=== PATIENT | female | born 1970 | race American Indian/Alaskan Native ===

== ENCOUNTER 2019-01-04 20:24 | Emergency (ER) | payer OTHER ==
--- NOTE | 2019-01-04 20:54 | Event Note ---
ED Screening Note Date of service: 01/04/19 Time: 20:51 ED Screening Note: itchy ears and throat pain. Now having right swelling of neck. This initial assessment/diagnostic orders/clinical plan/treatment(s) is/are subject to change based on patients health status, clinical progression and re- assessment by fellow clinical providers in the ED. Further treatment and workup at subsequent clinical providers discretion. Patient/guardian urged not to elope from the ED as their condition may be serious if not clinically assessed and managed. Initial orders include:
[2019-01-05] MEDS ORDERED: NORCO 5/325 PO STA (01:40)
[2019-01-05] MEDS ORDERED: DECADRON PO ONE (01:40)
--- NOTE | 2019-01-05 01:55 | Emergency Department Report ---
ED General Adult HPI - General Chief complaint: Earache Stated complaint: EAR PAIN SWOLLEN NECK Time Seen by Provider: 01/05/19 00:59 Source: patient Mode of arrival: Ambulatory Limitations: No Limitations - History of Present Illness Initial comments: 48-year-old -Armenian female emergency department a few day history of a tingling/50 sensation to the right cheek and then while eating something today. She had a sudden onset of swelling. States every time she begins to eat that the swelling worsens and then slowly but never fully resolved and today. Reports no fever, chills, sweats, hemoptysis, hematemesis,. No ear drainage or discharge. No odynophagia or dysphagia -: Sudden (swelling, swelling) Radiation: non-radiation Quality: aching Consistency: constant Improves with: none Worsens with: none Associated Symptoms: denies: chest pain, cough, fever/chills, loss of appetite, malaise, nausea/vomiting, rash, syncope, weakness Treatments Prior to Arrival: none - Related Data Previous Rx's Medication Instructions Recorded Last Taken Type Albuterol Sulfate [Ventolin HFA] 2 puff IH Q4H PRN #1 hfa.aer.ad 11/09/14 Unknown Rx Acetaminophen/Codeine [Tylenol #3] 1 tab PO Q6H PRN #15 tab 07/29/15 Unknown Rx Ibuprofen [Motrin 800 MG tab] 800 mg PO Q8HR PRN #30 tablet 07/29/15 Unknown Rx Sulfamethoxazole/Trimethoprim 1 each PO BID #14 tablet 07/29/15 Unknown Rx [Bactrim DS TAB] Amoxicillin/Potassium Clav 1 each PO TID #21 tablet 01/05/19 Unknown Rx [Augmentin 500-125 Tablet] Ketorolac [Toradol] 10 mg PO Q8H PRN #10 tablet 01/05/19 Unknown Rx Allergies Allergy/AdvReac Type Severity Reaction Status Date / Time Sulfa (Sulfonamide Allergy Unknown Verified 01/04/19 20:53 Antibiotics) ED Review of Systems ROS: Stated complaint: EAR PAIN SWOLLEN NECK Other details as noted in HPI Comment: All other systems reviewed and negative ED Past Medical Hx - Past Medical History Hx Asthma: Yes Additional medical history: bronchitis - Surgical History Additional Surgical History: removal of scar tissue, lap - Social History Smoking Status: Current Every Day Smoker Substance Use Type: None - Medications Home Medications: Home Medications Medication Instructions Recorded Confirmed Last Taken Type Albuterol Sulfate [Ventolin HFA] 2 puff IH Q4H PRN #1 hfa.aer.ad 11/09/14 07/28/15 Unknown Rx Acetaminophen/Codeine [Tylenol #3] 1 tab PO Q6H PRN #15 tab 07/29/15 Unknown Rx Ibuprofen [Motrin 800 MG tab] 800 mg PO Q8HR PRN #30 tablet 07/29/15 Unknown Rx Sulfamethoxazole/Trimethoprim 1 each PO BID #14 tablet 07/29/15 Unknown Rx [Bactrim DS TAB] Amoxicillin/Potassium Clav 1 each PO TID #21 tablet 01/05/19 Unknown Rx [Augmentin 500-125 Tablet] Ketorolac [Toradol] 10 mg PO Q8H PRN #10 tablet 01/05/19 Unknown Rx ED Physical Exam - General Limitations: No Limitations General appearance: alert, in no apparent distress - Head Head exam: Present: atraumatic, normocephalic - Eye Eye exam: Present: normal appearance, PERRL, EOMI Pupils: Present: normal accommodation - ENT ENT exam: Present: normal exam, mucous membranes moist - Neck Neck exam: Present: normal inspection - Respiratory Respiratory exam: Present: normal lung sounds bilaterally. Absent: respiratory distress - Cardiovascular Cardiovascular Exam: Present: regular rate, normal rhythm. Absent: systolic murmur, diastolic murmur, rubs, gallop - GI/Abdominal GI/Abdominal exam: Present: soft, normal bowel sounds - Extremities Exam Extremities exam: Present: normal inspection - Back Exam Back exam: Present: normal inspection - Neurological Exam Neurological exam: Present: alert, oriented X3 - Psychiatric Psychiatric exam: Present: normal affect, normal mood - Skin Skin exam: Present: warm, dry, intact, normal color. Absent: rash ED Course Vital Signs 01/04/19 20:50 Temperature 98.2 F Pulse Rate 82 Respiratory 18 Rate Blood Pressure 121/70 O2 Sat by Pulse 100 Oximetry ED Medical Decision Making - Medical Decision Making 48-year-old Armenian female was right-sided facial swelling salivary region. Swelling increases with certain meals causes a pressure tightness type of pain. No pustular discharge or bleeding noted. No odynophagia or dysphagia. No voice change. No lymphadenopathy.. Salivary stone, but also could be an inflamed salivary gland/early infectious salivary gland. Region was tender around biotics, and inflammatory/Decadron was provided while in the emergency department Critical care attestation.: If time is entered above; I have spent that time in minutes in the direct care of this critically ill patient, excluding procedure time. ED Disposition Clinical Impression: Facial pain Disposition: DC-01 TO HOME OR SELFCARE Is pt being admited?: No Does the pt Need Aspirin: No Condition: Stable Instructions: Sialoadenitis (ED), Parotid Duct Obstruction (ED) Additional Instructions: Discharge margin department suture swelling worsen, you develop fever, unable to manage the pain, are you having any issues eating/, drinking Prescriptions: Amoxicillin/Potassium Clav [Augmentin 500-125 Tablet] 1 each PO TID #21 tablet Ketorolac [Toradol] 10 mg PO Q8H PRN #10 tablet PRN Reason: Pain Referrals: SHANE CISNEROS MD [Primary Care Provider] - 3-5 Days
[2019-01-05] MEDS ORDERED: IBUPROFEN PO ONE (02:17)
[2019-01-05 02:58] VITALS: BP 117/46
== END 2019-01-05 02:58 | disposition home or self-care (01) ==
LOC: ED 20:24
DX: R51 Headache (principal); R22.0 Localized swelling, mass and lump, head; J45.909 Unspecified asthma, uncomplicated; F17.200 Nicotine dependence, unspecified, uncomplicated; Z88.2 Allergy status to sulfonamides; Z88.5 Allergy status to narcotic agent
CPT/HCPCS: 99282; J1100

== ENCOUNTER 2019-05-03 22:58 | Emergency (ER) | payer SELFPAY ==
--- NOTE | 2019-05-04 00:58 | XRay Report ---
CHEST 1 VIEW INDICATION / CLINICAL INFORMATION: Chest Pain. COMPARISON: None available. FINDINGS: SUPPORT DEVICES: None. HEART / MEDIASTINUM: No significant abnormality. LUNGS / PLEURA: No significant pulmonary or pleural abnormality. No pneumothorax. ADDITIONAL FINDINGS: No significant additional findings. IMPRESSION: 1. No acute findings. Signer Name: Filiberto Thompson MD Signed: 05/04/2019 12:53 AM Workstation Name: [email or web address]
[2019-05-04 01:13] LABS: Mean Corpuscular HGB Conc 28 % (30-34); Platelet Count 224 K/mm3 (140-440); Red Blood Count 2.58 M/mm3 (3.65-5.03)
[2019-05-04 01:18] LABS: Hemoglobin 4.4 gm/dl (10.1-14.3)
[2019-05-04 01:19] LABS: Hematocrit 15.8 % (30.3-42.9); Mean Corpuscular Volume 61 fl (79-97); Red Cell Distribution Width 20.5 % (13.2-15.2)
[2019-05-04 01:31] LABS: BUN/Creatinine Ratio 21; Blood Urea Nitrogen 15 mg/dL (7-17); Calcium 8.8 mg/dL (8.4-10.2); Hemolysis Index 0
[2019-05-04] MEDS ORDERED: NACL 0.9% 500 ML 500 ML IV ONE (02:12)
[2019-05-04 02:25] LABS: Basophils % (Manual) 0 % (0.0-1.8); Hypochromasia 3+; Total Cells Counted 100
[2019-05-04 02:26] LABS: Anisocytosis 2+; Large Platelets 1+; Ovalocytes 1+; Platelet Estimate Consistent w Auto; Tear Drop Cells Few
--- NOTE | 2019-05-04 02:46 | Emergency Department Report ---
ED Shortness of Breath HPI - General Chief Complaint: Dyspnea/Respdistress Stated Complaint: SHORTNESS OF BREATH LIGHTHEADED Time Seen by Provider: 05/04/19 01:27 Source: patient Mode of arrival: Ambulatory Limitations: No Limitations - History of Present Illness Initial Comments: Mrs. López is a 48-year-old female with history of iron deficiency anemia, asthma and bronchitis who presents with shortness of breath, palpitations ice- eating For several months she had generalized weakness. She feels faint with movement. +hx of heavy vaginal bleeding. Has not taken iron tablets in over one year. No longer followed by her previous PCP. No dark or bloody stools. Denies chest pain. Denies leg pain.. MD Complaint: shortness of breath -: Gradual, month(s) (several) Severity: moderate Consistency: constant Improves With: rest Worsens With: exertion, movement Known History Of: asthma, other (iron deficiency anemia) Associated Symptoms: denies other symptoms - Related Data Previous Rx's Medication Instructions Recorded Last Taken Type Albuterol Sulfate [Ventolin HFA] 2 puff IH Q4H PRN #1 hfa.aer.ad 11/09/14 Unknown Rx Acetaminophen/Codeine [Tylenol #3] 1 tab PO Q6H PRN #15 tab 07/29/15 Unknown Rx Ibuprofen [Motrin 800 MG tab] 800 mg PO Q8HR PRN #30 tablet 07/29/15 Unknown Rx Sulfamethoxazole/Trimethoprim 1 each PO BID #14 tablet 07/29/15 Unknown Rx [Bactrim DS TAB] Amoxicillin/Potassium Clav 1 each PO TID #21 tablet 01/05/19 Unknown Rx [Augmentin 500-125 Tablet] Ketorolac [Toradol] 10 mg PO Q8H PRN #10 tablet 01/05/19 Unknown Rx Ferrous Sulfate [Ferrous Sulfate 324 mg PO TID 30 Days #90 tablet. 05/04/19 Unknown Rx 324 MG] Allergies Allergy/AdvReac Type Severity Reaction Status Date / Time Sulfa (Sulfonamide Allergy Unknown Verified 01/05/19 02:18 Antibiotics) hydrocodone AdvReac Unknown Verified 01/05/19 02:18 ED Review of Systems ROS: Stated complaint: SHORTNESS OF BREATH LIGHTHEADED Other details as noted in HPI Comment: All other systems reviewed and negative Constitutional: malaise Respiratory: shortness of breath Cardiovascular: dyspnea on exertion, other (feels faint) Endocrine: other (craving ice) ED Past Medical Hx - Past Medical History Previous Medical History?: Yes Hx Asthma: Yes Additional medical history: bronchitis, Heart Murmur - Surgical History Past Surgical History?: Yes Additional Surgical History: removal of scar tissue, lap - Social History Smoking Status: Current Every Day Smoker - Medications Home Medications: Home Medications Medication Instructions Recorded Confirmed Last Taken Type Albuterol Sulfate [Ventolin HFA] 2 puff IH Q4H PRN #1 hfa.aer.ad 11/09/14 07/28/15 Unknown Rx Acetaminophen/Codeine [Tylenol #3] 1 tab PO Q6H PRN #15 tab 07/29/15 Unknown Rx Ibuprofen [Motrin 800 MG tab] 800 mg PO Q8HR PRN #30 tablet 07/29/15 Unknown Rx Sulfamethoxazole/Trimethoprim 1 each PO BID #14 tablet 07/29/15 Unknown Rx [Bactrim DS TAB] Amoxicillin/Potassium Clav 1 each PO TID #21 tablet 01/05/19 Unknown Rx [Augmentin 500-125 Tablet] Ketorolac [Toradol] 10 mg PO Q8H PRN #10 tablet 01/05/19 Unknown Rx Ferrous Sulfate [Ferrous Sulfate 324 mg PO TID 30 Days #90 tablet.dr 05/04/19 Unknown Rx 324 MG] ED Physical Exam - General Limitations: No Limitations General appearance: alert, in no apparent distress - Head Head exam: Present: atraumatic, normocephalic - Eye Eye exam: Present: normal appearance - ENT ENT exam: Present: mucous membranes moist - Neck Neck exam: Present: normal inspection, full ROM - Respiratory Respiratory exam: Present: normal lung sounds bilaterally. Absent: respiratory distress, wheezes, rales, rhonchi - Cardiovascular Cardiovascular Exam: Present: regular rate, normal rhythm, normal heart sounds. Absent: systolic murmur, diastolic murmur, rubs, gallop - GI/Abdominal GI/Abdominal exam: Present: soft, normal bowel sounds. Absent: distended, tenderness, guarding, rebound - Extremities Exam Extremities exam: Present: normal inspection - Back Exam Back exam: Present: normal inspection - Neurological Exam Neurological exam: Present: alert, oriented X3 - Psychiatric Psychiatric exam: Present: normal affect, normal mood - Skin Skin exam: Present: warm, dry, intact, normal color. Absent: rash ED Course Vital Signs 05/04/19 01:36 Temperature 98.2 F Pulse Rate 75 Respiratory 19 Rate Blood Pressure 115/67 [Left] O2 Sat by Pulse 98 Oximetry ED Medical Decision Making - Lab Data Result diagrams: 05/04/19 00:53 05/04/19 00:53 - Medical Decision Making Mrs. Dick presents with severe symptomatic anemia. Hemoglobin 4. She is not actively mistreating at this time. I do not suspect GI bleed. She will receive 2 units transfusion in the emergency department. Will be discharged after transfusion is completed. I have prescribed iron supplementation. Referred to outside clinic. Critical care attestation.: If time is entered above; I have spent that time in minutes in the direct care of this critically ill patient, excluding procedure time. ED Disposition Clinical Impression: Symptomatic anemia, Iron deficiency anemia Disposition: DC-01 TO HOME OR SELFCARE Is pt being admited?: No Does the pt Need Aspirin: No Condition: Stable Instructions: Iron Deficiency Anemia (ED), Iron Rich Diet (ED) Prescriptions: Ferrous Sulfate [Ferrous Sulfate 324 MG] 324 mg PO TID 30 Days #90 tablet. Referrals: [facility] [Outside] - 3-5 Days Forms: Work/School Release Form(ED)
[2019-05-04] MEDS ORDERED: NACL 0.9% 500 ML 500 ML ONE (04:40)
[2019-05-04 10:05] VITALS: BP 135/74
== END 2019-05-04 10:13 | disposition home or self-care (01) ==
LOC: ED 22:58
DX: D50.9 Iron deficiency anemia, unspecified (principal); J45.909 Unspecified asthma, uncomplicated; F17.200 Nicotine dependence, unspecified, uncomplicated; Z79.899 Other long term (current) drug therapy; Z88.2 Allergy status to sulfonamides; Z88.5 Allergy status to narcotic agent
CPT/HCPCS: 36415; 36430; 71045; 80048; 84484; 85007; 85025; 86850; 86900; 86901; 86920; 93005; 93010; 99284; J7040; P9016

== ENCOUNTER 2019-05-27 07:36 | Emergency (ER) | payer SELFPAY ==
--- NOTE | 2019-05-27 08:27 | Emergency Department Report ---
- General Chief complaint: Weakness Stated complaint: CUAUHTEMOC Time Seen by Provider: 05/27/19 07:54 Source: EMS, old records reviewed Mode of arrival: Ambulatory Limitations: No Limitations - History of Present Illness Initial comments: 48 year old female the past medical history of iron deficiency anemia requiring blood transfusions, asthma, and GERD presents to the hospital complaining of weakness and fluttering in her chest 2 days. Also has ongoing epigastric discomfort which is difficult to characterize. This pain worsens with ingestion of certain foods. Patient takes bnsl-[id number] Zantac. She recently completed her menstrual cycle reports that it wasn't significantly heavy. Patient is not compliant with enly-rry-hpdvgmw iron tablets GI side effects. Patient was seen here May 04 for similar symptoms and had a hemoglobin of 4. She received 2 days of blood and was discharged from the ER. Patient states she is starting to have cravings for ice again. No black stools reported. PMD: None - Related Data Previous Rx's Medication Instructions Recorded Last Taken Type Albuterol Sulfate [Ventolin HFA] 2 puff IH Q4H PRN #1 hfa.aer.ad 11/09/14 Unknown Rx Acetaminophen/Codeine [Tylenol #3] 1 tab PO Q6H PRN #15 tab 07/29/15 Unknown Rx Ibuprofen [Motrin 800 MG tab] 800 mg PO Q8HR PRN #30 tablet 07/29/15 Unknown Rx Sulfamethoxazole/Trimethoprim 1 each PO BID #14 tablet 07/29/15 Unknown Rx [Bactrim DS TAB] Amoxicillin/Potassium Clav 1 each PO TID #21 tablet 01/05/19 Unknown Rx [Augmentin 500-125 Tablet] Ketorolac [Toradol] 10 mg PO Q8H PRN #10 tablet 01/05/19 Unknown Rx Ferrous Sulfate [Ferrous Sulfate 300 mg PO DAILY 30 Days ml 05/27/19 Unknown Rx Oral Liq 300 Mg/5 Ml] Mag Hydrox/Aluminum Hyd/Simeth 20 ml PO BID PRN #1 oral.susp 05/27/19 Unknown Rx [Maalox Advanced Suspension] Pantoprazole [Protonix TAB] 20 mg PO QDAY #20 tablet. 05/27/19 Unknown Rx Allergies Allergy/AdvReac Type Severity Reaction Status Date / Time Sulfa (Sulfonamide Allergy Unknown Verified 01/05/19 02:18 Antibiotics) hydrocodone AdvReac Unknown Verified 01/05/19 02:18 ED Review of Systems ROS: Stated complaint: CUAUHTEMOC Other details as noted in HPI Comment: All other systems reviewed and negative ED Past Medical Hx - Past Medical History Previous Medical History?: Yes Hx Asthma: Yes Additional medical history: bronchitis, Heart Murmur, Anemia - Surgical History Past Surgical History?: Yes Additional Surgical History: removal of scar tissue, lap - Social History Smoking Status: Current Every Day Smoker Substance Use Type: Alcohol - Medications Home Medications: Home Medications Medication Instructions Recorded Confirmed Last Taken Type Albuterol Sulfate [Ventolin HFA] 2 puff IH Q4H PRN #1 hfa.aer.ad 11/09/14 07/28/15 Unknown Rx Acetaminophen/Codeine [Tylenol #3] 1 tab PO Q6H PRN #15 tab 07/29/15 Unknown Rx Ibuprofen [Motrin 800 MG tab] 800 mg PO Q8HR PRN #30 tablet 07/29/15 Unknown Rx Sulfamethoxazole/Trimethoprim 1 each PO BID #14 tablet 07/29/15 Unknown Rx [Bactrim DS TAB] Amoxicillin/Potassium Clav 1 each PO TID #21 tablet 01/05/19 Unknown Rx [Augmentin 500-125 Tablet] Ketorolac [Toradol] 10 mg PO Q8H PRN #10 tablet 01/05/19 Unknown Rx Ferrous Sulfate [Ferrous Sulfate 300 mg PO DAILY 30 Days ml 05/27/19 Unknown Rx Oral Liq 300 Mg/5 Ml] Mag Hydrox/Aluminum Hyd/Simeth 20 ml PO BID PRN #1 oral.susp 05/27/19 Unknown Rx [Maalox Advanced Suspension] Pantoprazole [Protonix TAB] 20 mg PO QDAY #20 tablet. 05/27/19 Unknown Rx ED Physical Exam - General Limitations: No Limitations - Other Other exam information: General: No acute distress Head: Atraumatic Eyes: normal appearance ENT: Moist mucous membranes Neck: Normal appearance, no midline tenderness Chest: Clear to auscultation bilaterally CV: Regular rate and rhythm Abdomen: Soft, normal bowel sounds, epigastric tenderness, nondistended, no rebound or guarding Back: Normal inspection Extremity: Normal inspection infection, full range of motion Neuro: Alert O x 3, no facial asymmetry, speech clear, no gross motor sensory deficit Psych: Appropriate behavior Skin: No rash ED Course Vital Signs 05/27/19 05/27/19 05/27/19 07:51 08:29 10:29 Temperature 98.0 F Pulse Rate 77 73 Respiratory 14 14 18 Rate Blood Pressure 136/73 Blood Pressure 136/83 [Left] O2 Sat by Pulse 100 100 Oximetry - Consultations Consultation #1: 05/27/19 10:56 case d/w Pakeitha with heydi heart. f/u recommended ED Medical Decision Making - Lab Data Result diagrams: 05/27/19 08:03 05/27/19 08:03 Lab Results 05/27/19 05/27/19 05/27/19 Range/Units 08:03 08:03 08:03 WBC 5.0 (4.5-11.0) K/mm3 RBC 3.73 (3.65-5.03) M/mm3 Hgb 8.2 L (10.1-14.3) gm/dl Hct 27.2 L (30.3-42.9) % MCV 73 L (79-97) fl MCH 22 L (28-32) pg MCHC 30 (30-34) % RDW 29.9 H (13.2-15.2) % Plt Count 286 (140-440) K/mm3 Add Manual Diff Complete Total Counted 100 Seg Neuts % (Manual) 59.0 (40.0-70.0) % Band Neutrophils % 0 % Lymphocytes % (Manual) 26.0 (13.4-35.0) % Reactive Lymphs % (Man) 0 % Monocytes % (Manual) 7.0 (0.0-7.3) % Eosinophils % (Manual) 8.0 H (0.0-4.3) % Basophils % (Manual) 0 (0.0-1.8) % Metamyelocytes % 0 % Myelocytes % 0 % Promyelocytes % 0 % Blast Cells % 0 % Nucleated RBC % Not Reportable Seg Neutrophils # Man 3.0 (1.8-7.7) K/mm3 Band Neutrophils # 0.0 K/mm3 Lymphocytes # (Manual) 1.3 (1.2-5.4) K/mm3 Abs React Lymphs (Man) 0.0 K/mm3 Monocytes # (Manual) 0.4 (0.0-0.8) K/mm3 Eosinophils # (Manual) 0.4 (0.0-0.4) K/mm3 Basophils # (Manual) 0.0 (0.0-0.1) K/mm3 Metamyelocytes # 0.0 K/mm3 Myelocytes # 0.0 K/mm3 Promyelocytes # 0.0 K/mm3 Blast Cells # 0.0 K/mm3 WBC Morphology Not Reportable Hypersegmented Neuts Not Reportable Hyposegmented Neuts Not Reportable Hypogranular Neuts Not Reportable Smudge Cells Not Reportable Toxic Granulation Not Reportable Toxic Vacuolation Not Reportable Dohle Bodies Not Reportable Pelger-Huet Anomaly Not Reportable Austyn Rods Not Reportable Platelet Estimate Consistent w auto Clumped Platelets Not Reportable Plt Clumps, EDTA Not Reportable Large Platelets Few Giant Platelets Not Reportable Platelet Satelliting Not Reportable Plt Morphology Comment Not Reportable RBC Morphology Not Reportable Dimorphic RBCs Not Reportable Polychromasia Not Reportable Hypochromasia 3+ Poikilocytosis Not Reportable Anisocytosis 2+ Microcytosis Not Reportable Macrocytosis Not Reportable Spherocytes Not Reportable Pappenheimer Bodies Not Reportable Sickle Cells Not Reportable Target Cells Not Reportable Tear Drop Cells Not Reportable Ovalocytes Rare Stomatocytes Few Helmet Cells Not Reportable Wyatt-Rising Star Bodies Not Reportable Cooter Rings Not Reportable [place]aritan Cells Not Reportable Bite Cells Not Reportable Crenated Cell Not Reportable Elliptocytes Not Reportable Acanthocytes (Spur) Not Reportable Rouleaux Not Reportable Hemoglobin C Crystals Not Reportable Schistocytes Not Reportable Malaria parasites Not Reportable Vickey Bodies Not Reportable Hem Pathologist Commnt No PT 13.1 (12.2-14.9) Sec. INR 1.00 (0.87-1.13) APTT 28.6 (24.2-36.6) Sec. D-Dimer (0-234) ng/mlDDU Sodium 141 (137-145) mmol/L Potassium 4.2 (3.6-5.0) mmol/L Chloride 105.0 (98-107) mmol/L Carbon Dioxide 22 (22-30) mmol/L Anion Gap 18 mmol/L BUN 8 (7-17) mg/dL Creatinine 0.5 L (0.7-1.2) mg/dL Estimated GFR > 60 ml/min BUN/Creatinine Ratio 16 % Glucose 103 H (65-100) mg/dL Calcium 9.1 (8.4-10.2) mg/dL Magnesium (1.7-2.3) mg/dL Iron (37-170) ug/dL TIBC (250-450) mcg/dL % Saturation % Transferrin (192-382) mg/dl Total Bilirubin 0.20 (0.1-1.2) mg/dL AST 14 (5-40) units/L ALT 12 (7-56) units/L Alkaline Phosphatase 85 (35-129) units/L Troponin T < 0.010 (0.00-0.029) ng/mL Total Protein 6.9 (6.3-8.2) g/dL Albumin 3.9 (3.9-5) g/dL Albumin/Globulin Ratio 1.3 % HCG, Qual (Negative) Blood Type Antibody Screen 05/27/19 05/27/19 05/27/19 Range/Units 08:03 08:03 08:03 WBC (4.5-11.0) K/mm3 RBC (3.65-5.03) M/mm3 Hgb (10.1-14.3) gm/dl Hct (30.3-42.9) % MCV (79-97) fl MCH (28-32) pg MCHC (30-34) % RDW (13.2-15.2) % Plt Count (140-440) K/mm3 Add Manual Diff Total Counted Seg Neuts % (Manual) (40.0-70.0) % Band Neutrophils % % Lymphocytes % (Manual) (13.4-35.0) % Reactive Lymphs % (Man) % Monocytes % (Manual) (0.0-7.3) % Eosinophils % (Manual) (0.0-4.3) % Basophils % (Manual) (0.0-1.8) % Metamyelocytes % % Myelocytes % % Promyelocytes % % Blast Cells % % Nucleated RBC % Seg Neutrophils # Man (1.8-7.7) K/mm3 Band Neutrophils # K/mm3 Lymphocytes # (Manual) (1.2-5.4) K/mm3 Abs React Lymphs (Man) K/mm3 Monocytes # (Manual) (0.0-0.8) K/mm3 Eosinophils # (Manual) (0.0-0.4) K/mm3 Basophils # (Manual) (0.0-0.1) K/mm3 Metamyelocytes # K/mm3 Myelocytes # K/mm3 Promyelocytes # K/mm3 Blast Cells # K/mm3 WBC Morphology Hypersegmented Neuts Hyposegmented Neuts Hypogranular Neuts Smudge Cells Toxic Granulation Toxic Vacuolation Dohle Bodies Pelger-Huet Anomaly Austyn Rods Platelet Estimate Clumped Platelets Plt Clumps, EDTA Large Platelets Giant Platelets Platelet Satelliting Plt Morphology Comment RBC Morphology Dimorphic RBCs Polychromasia Hypochromasia Poikilocytosis Anisocytosis Microcytosis Macrocytosis Spherocytes Pappenheimer Bodies Sickle Cells Target Cells Tear Drop Cells Ovalocytes Stomatocytes Helmet Cells Wyatt-Rising Star Bodies Cooter Rings [place] Cells Bite Cells Crenated Cell Elliptocytes Acanthocytes (Spur) Rouleaux Hemoglobin C Crystals Schistocytes Malaria parasites Vickey Bodies Hem Pathologist Commnt PT (12.2-14.9) Sec. INR (0.87-1.13) APTT (24.2-36.6) Sec. D-Dimer (0-234) ng/mlDDU Sodium (137-145) mmol/L Potassium (3.6-5.0) mmol/L Chloride (98-107) mmol/L Carbon Dioxide (22-30) mmol/L Anion Gap mmol/L BUN (7-17) mg/dL Creatinine (0.7-1.2) mg/dL Estimated GFR ml/min BUN/Creatinine Ratio % Glucose (65-100) mg/dL Calcium (8.4-10.2) mg/dL Magnesium 1.80 (1.7-2.3) mg/dL Iron 16 L (37-170) ug/dL TIBC 447 (250-450) mcg/dL % Saturation 3.58 % Transferrin 374 (192-382) mg/dl Total Bilirubin (0.1-1.2) mg/dL AST (5-40) units/L ALT (7-56) units/L Alkaline Phosphatase (35-129) units/L Troponin T (0.00-0.029) ng/mL Total Protein (6.3-8.2) g/dL Albumin (3.9-5) g/dL Albumin/Globulin Ratio % HCG, Qual Negative (Negative) Blood Type A POSITIVE Antibody Screen Negative 05/27/19 Range/Units 08:03 WBC (4.5-11.0) K/mm3 RBC (3.65-5.03) M/mm3 Hgb (10.1-14.3) gm/dl Hct (30.3-42.9) % MCV (79-97) fl MCH (28-32) pg MCHC (30-34) % RDW (13.2-15.2) % Plt Count (140-440) K/mm3 Add Manual Diff Total Counted Seg Neuts % (Manual) (40.0-70.0) % Band Neutrophils % % Lymphocytes % (Manual) (13.4-35.0) % Reactive Lymphs % (Man) % Monocytes % (Manual) (0.0-7.3) % Eosinophils % (Manual) (0.0-4.3) % Basophils % (Manual) (0.0-1.8) % Metamyelocytes % % Myelocytes % % Promyelocytes % % Blast Cells % % Nucleated RBC % Seg Neutrophils # Man (1.8-7.7) K/mm3 Band Neutrophils # K/mm3 Lymphocytes # (Manual) (1.2-5.4) K/mm3 Abs React Lymphs (Man) K/mm3 Monocytes # (Manual) (0.0-0.8) K/mm3 Eosinophils # (Manual) (0.0-0.4) K/mm3 Basophils # (Manual) (0.0-0.1) K/mm3 Metamyelocytes # K/mm3 Myelocytes # K/mm3 Promyelocytes # K/mm3 Blast Cells # K/mm3 WBC Morphology Hypersegmented Neuts Hyposegmented Neuts Hypogranular Neuts Smudge Cells Toxic Granulation Toxic Vacuolation Dohle Bodies Pelger-Huet Anomaly Austyn Rods Platelet Estimate Clumped Platelets Plt Clumps, EDTA Large Platelets Giant Platelets Platelet Satelliting Plt Morphology Comment RBC Morphology Dimorphic RBCs Polychromasia Hypochromasia Poikilocytosis Anisocytosis Microcytosis Macrocytosis Spherocytes Pappenheimer Bodies Sickle Cells Target Cells Tear Drop Cells Ovalocytes Stomatocytes Helmet Cells Wyatt-Rising Star Bodies Cooter Rings Ann Cells Bite Cells Crenated Cell Elliptocytes Acanthocytes (Spur) Rouleaux Hemoglobin C Crystals Schistocytes Malaria parasites Vickey Bodies Hem Pathologist Commnt PT (12.2-14.9) Sec. INR (0.87-1.13) APTT (24.2-36.6) Sec. D-Dimer 143.55 (0-234) ng/mlDDU Sodium (137-145) mmol/L Potassium (3.6-5.0) mmol/L Chloride (98-107) mmol/L Carbon Dioxide (22-30) mmol/L Anion Gap mmol/L BUN (7-17) mg/dL Creatinine (0.7-1.2) mg/dL Estimated GFR ml/min BUN/Creatinine Ratio % Glucose (65-100) mg/dL Calcium (8.4-10.2) mg/dL Magnesium (1.7-2.3) mg/dL Iron (37-170) ug/dL TIBC (250-450) mcg/dL % Saturation % Transferrin (192-382) mg/dl Total Bilirubin (0.1-1.2) mg/dL AST (5-40) units/L ALT (7-56) units/L Alkaline Phosphatase (35-129) units/L Troponin T (0.00-0.029) ng/mL Total Protein (6.3-8.2) g/dL Albumin (3.9-5) g/dL Albumin/Globulin Ratio % HCG, Qual (Negative) Blood Type Antibody Screen - EKG Data -: EKG Interpreted by Me EKG shows normal: sinus rhythm, ST-T waves (no stemi, pvc's) - Radiology Data Radiology results: report reviewed CHEST 1 VIEW INDICATION: Shortness of breath. COMPARISON: 05/04/2019 FINDINGS: Support devices: None. Heart: Within normal limits. Lungs/Pleura: No acute air space or interstitial disease. Additional findings: None. IMPRESSION: No acute findings. - Medical Decision Making + iron deficiency anemia. hemoglobin > 8 therefore transfusion not needed ddimer neg with low pretest prob pt having chronic epigastric and gerd/dyspesia sx pvc's discussed with card, f/u advised f/u with pmd, cards, and gi recommended - Differential Diagnosis anemia, pe, arrhythmia, chf, pneumonia Critical Care Time: No Critical care attestation.: If time is entered above; I have spent that time in minutes in the direct care of this critically ill patient, excluding procedure time. ED Disposition Clinical Impression: Palpitations, PVC (premature ventricular contraction), Iron deficiency anemia, Dyspepsia Disposition: DC-01 TO HOME OR SELFCARE Is pt being admited?: No Does the pt Need Aspirin: No Condition: Stable Instructions: Palpitations (ED), Iron Deficiency Anemia (ED), Chronic Indigestion (ED) Additional Instructions: Take the medication as prescribed. Follow-up with your doctor or doctor/clinic provided. Return if symptoms worsen as indicated by your discharge instru ctions. Prescriptions: Ferrous Sulfate [Ferrous Sulfate Oral Liq 300 Mg/5 Ml] 300 mg PO DAILY 30 Days ml Mag Hydrox/Aluminum Hyd/Simeth [Maalox Advanced Suspension] 20 ml PO BID PRN #1 oral.susp PRN Reason: Indigestion Pantoprazole [Protonix TAB] 20 mg PO QDAY #20 tablet.dr Referrals: CAROLANN FOSTER MD [Staff Physician] - 7-10 days (cardiolgist ) [facility] [Provider Group] - 7-10 days (GI doctor ) PRIMARY MD MICHELL [Primary Care Provider] - 7-10 days [facility] [Provider Group] - 7-10 days Time of Disposition: 11:06
[2019-05-27 08:40] LABS: Partial Thromboplastin Time 28.6 Sec. (24.2-36.6)
[2019-05-27 08:45] LABS: % Iron Saturation 3.58 %; Alanine Aminotransferase 12 units/L (7-56); Albumin 3.9 g/dL (3.9-5); BUN/Creatinine Ratio 16; Blood Urea Nitrogen 8 mg/dL (7-17); Calcium 9.1 mg/dL (8.4-10.2); Hemolysis Index 0
[2019-05-27 08:53] LABS: Hematocrit 27.2 % (30.3-42.9); Hemoglobin 8.2 gm/dl (10.1-14.3); Mean Corpuscular HGB Conc 30 % (30-34); Mean Corpuscular Volume 73 fl (79-97); Platelet Count 286 K/mm3 (140-440); Red Blood Count 3.73 M/mm3 (3.65-5.03)
[2019-05-27 08:54] LABS: Red Cell Distribution Width 29.9 % (13.2-15.2)
--- NOTE | 2019-05-27 09:43 | XRay Report ---
CHEST 1 VIEW INDICATION: Shortness of breath. COMPARISON: 05/04/2019 FINDINGS: Support devices: None. Heart: Within normal limits. Lungs/Pleura: No acute air space or interstitial disease. Additional findings: None. IMPRESSION: No acute findings. Signer Name: Pipo Hughes Jr, MD Signed: 05/27/2019 9:39 AM Workstation Name: [id number]
[2019-05-27 10:30] VITALS: BP 136/83
[2019-05-27 10:34] LABS: Basophils % (Manual) 0 % (0.0-1.8); Total Cells Counted 100
[2019-05-27 10:35] LABS: Anisocytosis 2+; Hypochromasia 3+; Large Platelets Few
[2019-05-27 10:36] LABS: Ovalocytes Rare; Platelet Estimate Consistent w Auto; Stomatocytes Few
[2019-05-27] MEDS ORDERED: LIDOCAINE VISCOUS 2% 15 ML ORAL LIQD PO ONE (10:58)
[2019-05-27] MEDS ORDERED: ALUM-MAG HYDROXIDE-SIMETHICONE 200-200-20MG/5ML ORAL LIQD 30 ML PO ONE (10:58)
== END 2019-05-27 11:23 | disposition home or self-care (01) ==
LOC: ED 07:36
DX: I49.3 Ventricular premature depolarization (principal); D50.9 Iron deficiency anemia, unspecified; R10.13 Epigastric pain; J45.909 Unspecified asthma, uncomplicated; F17.200 Nicotine dependence, unspecified, uncomplicated
CPT/HCPCS: 36415; 71045; 80053; 83550; 83735; 84484; 84703; 85007; 85025; 85379; 85610; 85730; 86850; 86900; 86901; 93005; 93010

== ENCOUNTER 2020-02-15 16:51 | Emergency (ER) | payer SELFPAY ==
--- NOTE | 2020-02-15 18:03 | Event Note ---
ED Screening Note ED Screening Note: co "rash in her ass" also co allergies bothering her rx none slammed door in triage during MSE process This initial assessment/diagnostic orders/clinical plan/treatment(s) is/are subject to change based on patients health status, clinical progression and re- assessment by fellow clinical providers in the ED. Further treatment and workup at subsequent clinical providers discretion. Patient/guardian urged not to elope from the ED as their condition may be serious if not clinically assessed and managed. Initial orders include: gown in ACC for eval
== END 2020-02-16 01:49 | disposition left against medical advice (07) ==
LOC: ED 16:51
DX: R21 Rash and other nonspecific skin eruption (principal); Z53.21 Procedure and treatment not carried out due to patient leaving prior to being seen by health care provider

== ENCOUNTER 2020-03-10 01:10 | Emergency (ER) | payer SELFPAY ==
--- NOTE | 2020-03-10 02:23 | XRay Report ---
EXAMINATION: Left knee radiograph, 3 views CLINICAL INFORMATION: Knee pain after fall 4 months ago COMPARISON: None. FINDINGS: Mild bony degenerative changes of the left knee are noted without evidence of acute fractur e or subluxation. There may be mild soft tissue swelling. Signer Name: Stepihe Sutton MD Signed: 03/10/2020 2:19 AM Workstation Name: [id number]
[2020-03-10 02:27] VITALS: BP 116/67
[2020-03-10] MEDS ORDERED: ACETAMINOPHEN 500 MG TAB PO ONE (07:11)
--- NOTE | 2020-03-10 08:03 | Vascular Lab Report ---
DUPLEX DOPPLER LOWER EXTREMITY VEINS, BILATERAL INDICATION / CLINICAL INFORMATION: llE calf pain and swelling. TECHNIQUE: Duplex doppler imaging was performed through the veins of both lower extremities using venous jose booker and other maneuvers. COMPARISON: None available. FINDINGS: RIGHT COMMON FEMORAL VEIN: Negative. RIGHT FEMORAL VEIN: Negative. RIGHT POPLITEAL VEIN: Negative. RIGHT CALF VEINS: Negative. LEFT COMMON FEMORAL VEIN: Negative. LEFT FEMORAL VEIN: Negative. LEFT POPLITEAL VEIN: Negative. LEFT CALF VEINS: Negative. ADDITIONAL FINDINGS: None. IMPRESSION: 1. No sonographic evidence for DVT in either lower extremity. Signer Name: Aramis Gomez MD Signed: 03/10/2020 7:59 AM Workstation Name: [email or web address]
--- NOTE | 2020-03-10 09:29 | Emergency Department Report ---
ED Extremity Problem HPI - General Chief complaint: Extremity Injury, Lower Stated complaint: SWOLLEN LEFT LEG Time Seen by Provider: 03/10/20 07:09 Source: patient Mode of arrival: Ambulatory Limitations: No Limitations - History of Present Illness Initial comments: 49-year-old -[place] female presents to the emergency room for left knee and leg pain. Patient states that she had jumped off a roof of a car a week or 4 months ago and now she is been having pain left leg. Patient states she is tried Tylenol or ibuprofen [employer] pause with no resolution of pain. MD Complaint: extremity pain, extremity swelling Onset/Timin -: week(s) Location: left, knee History of Same: No -: Yes myalgia, Yes arthralgia Severity scale (0 -10): 7 Quality: aching, sharp Consistency: intermittent Improves with: nothing Worsens with: weight bearing, walking Associated Symptoms: denies other symptoms - Related Data Previous Rx's Medication Instructions Recorded Last Taken Type Albuterol Sulfate [Ventolin HFA] 2 puff IH Q4H PRN #1 hfa.aer.ad 11/09/14 Unknown Rx Acetaminophen/Codeine [Tylenol #3] 1 tab PO Q6H PRN #15 tab 07/29/15 Unknown Rx Ibuprofen [Motrin 800 MG tab] 800 mg PO Q8HR PRN #30 tablet 07/29/15 Unknown Rx Sulfamethoxazole/Trimethoprim 1 each PO BID #14 tablet 07/29/15 Unknown Rx [Bactrim DS TAB] Amoxicillin/Potassium Clav 1 each PO TID #21 tablet 01/05/19 Unknown Rx [Augmentin 500-125 Tablet] Ketorolac [Toradol] 10 mg PO Q8H PRN #10 tablet 01/05/19 Unknown Rx Docusate Sodium [Colace] 100 mg PO BID PRN #20 capsule 05/27/19 Unknown Rx Ferrous Sulfate [Ferrous Sulfate 300 mg PO DAILY 30 Days ml 05/27/19 Unknown Rx Oral Liq 300 Mg/5 Ml] Mag Hydrox/Aluminum Hyd/Simeth 20 ml PO BID PRN #1 oral.susp 05/27/19 Unknown Rx [Maalox Advanced Suspension] Pantoprazole [Protonix TAB] 20 mg PO QDAY #20 tablet 05/27/19 Unknown Rx Allergies Allergy/AdvReac Type Severity Reaction Status Date / Time Sulfa (Sulfonamide Allergy Unknown Verified 01/05/19 02:18 Antibiotics) hydrocodone AdvReac Unknown Verified 01/05/19 02:18 ED Review of Systems ROS: Stated complaint: SWOLLEN LEFT LEG Other details as noted in HPI ED Past Medical Hx - Past Medical History Previous Medical History?: Yes Hx Asthma: Yes Additional medical history: bronchitis, Heart Murmur, Anemia - Surgical History Past Surgical History?: Yes Additional Surgical History: removal of scar tissue, lap - Social History Smoking Status: Current Every Day Smoker Substance Use Type: Alcohol, Marijuana - Medications Home Medications: Home Medications Medication Instructions Recorded Confirmed Last Taken Type Albuterol Sulfate [Ventolin HFA] 2 puff IH Q4H PRN #1 hfa.aer.ad 11/09/14 07/28/15 Unknown Rx Acetaminophen/Codeine [Tylenol #3] 1 tab PO Q6H PRN #15 tab 07/29/15 Unknown Rx Ibuprofen [Motrin 800 MG tab] 800 mg PO Q8HR PRN #30 tablet 07/29/15 Unknown Rx Sulfamethoxazole/Trimethoprim 1 each PO BID #14 tablet 07/29/15 Unknown Rx [Bactrim DS TAB] Amoxicillin/Potassium Clav 1 each PO TID #21 tablet 01/05/19 Unknown Rx [Augmentin 500-125 Tablet] Ketorolac [Toradol] 10 mg PO Q8H PRN #10 tablet 01/05/19 Unknown Rx Docusate Sodium [Colace] 100 mg PO BID PRN #20 capsule 05/27/19 Unknown Rx Ferrous Sulfate [Ferrous Sulfate 300 mg PO DAILY 30 Days ml 05/27/19 Unknown Rx Oral Liq 300 Mg/5 Ml] Mag Hydrox/Aluminum Hyd/Simeth 20 ml PO BID PRN #1 oral.susp 05/27/19 Unknown Rx [Maalox Advanced Suspension] Pantoprazole [Protonix TAB] 20 mg PO QDAY #20 tablet. 05/27/19 Unknown Rx ED Physical Exam - General Limitations: No Limitations General appearance: alert, in no apparent distress - Head Head exam: Present: atraumatic, normocephalic - Eye Eye exam: Present: normal appearance - ENT ENT exam: Present: mucous membranes moist - Neck Neck exam: Present: normal inspection - Respiratory Respiratory exam: Present: normal lung sounds bilaterally. Absent: respiratory distress - Cardiovascular Cardiovascular Exam: Present: regular rate, normal rhythm. Absent: systolic murmur, diastolic murmur, rubs, gallop - Expanded Lower Extremity Exam Left Knee exam: Present: full ROM, tenderness, swelling (Mild). Absent: abrasion, erythema, effusion, posterior draw sign, pain/laxity with valgus Lower Leg exam: Present: normal inspection, full ROM. Absent: tenderness Ankle exam: Present: full ROM, swelling. Absent: tenderness Neuro vascular tendon exam: Present: no vascular compromise Gait: Positive: observed and normal - Back Exam Back exam: Present: normal inspection - Neurological Exam Neurological exam: Present: alert, oriented X3, normal gait - Psychiatric Psychiatric exam: Present: normal affect, normal mood - Skin Skin exam: Present: warm, dry, intact, normal color. Absent: rash ED Course Vital Signs 03/10/20 03/10/20 01:26 07:19 Temperature 97.9 F Pulse Rate 91 H Respiratory 18 18 Rate Blood Pressure 116/67 O2 Sat by Pulse 97 Oximetry ED Medical Decision Making - Radiology Data Radiology results: report reviewed [address] [address] Vascular Lab Report Signed Patient: SUDHA FLORENTINO MR#: [id number] : 1970 Acct:[id number] Age/Sex: 49 / F ADM Date: 03/10/20 Loc: ED Attending Dr: Ordering Physician: MARIAM HERNANDEZ Date of Service: 03/10/20 Procedure(s): VL venous duplex LE LT Accession Number(s): [id number] cc: MARIAM HERNANDEZ DUPLEX DOPPLER LOWER EXTREMITY VEINS, BILATERAL INDICATION / CLINICAL INFORMATION: llE calf pain and swelling. TECHNIQUE: Duplex doppler imaging was performed through the veins of both lower extremities using venous compression and other maneuvers. COMPARISON: None available. FINDINGS: RIGHT COMMON FEMORAL VEIN: Negative. RIGHT FEMORAL VEIN: Negative. RIGHT POPLITEAL VEIN: Negative. RIGHT CALF VEINS: Negative. LEFT COMMON FEMORAL VEIN: Negative. LEFT FEMORAL VEIN: Negative. LEFT POPLITEAL VEIN: Negative. LEFT CALF VEINS: Negative. ADDITIONAL FINDINGS: None. IMPRESSION: 1. No sonographic evidence for DVT in either lower extremity. Signer Name: Aramis Gomez MD Signed: 03/10/2020 7:59 AM Workstation Name: [id number] Transcribed By: SW Dictated By: Aramis Gomez MD Electronically Authenticated By: Aramis Gomez MD Signed Date/Time: 03/10/20758 DD/ 6 TD/TT: Patient: SUDHA FLORENTINO MR#: [id number] : 1970 Acct:[id number] Age/Sex: 49 / F ADM Date: 03/10/20 Loc: ED Attending Dr: Ordering Physician: ED MD LONA Date of Service: 03/10/20 Procedure(s): XR knee 1-2V LT Accession Number(s): [id number] cc: ED MD LONA Fluoro Time In Minutes: EXAMINATION: Left knee radiograph, 3 views CLINICAL INFORMATION: Knee pain after fall 4 months ago COMPARISON: None. FINDINGS: Mild bony degenerative changes of the left knee are noted without evidence of acute fracture or subluxation. There may be mild soft tissue swelling. Signer Name: Stephie Sutton MD Signed: 03/10/2020 2:19 AM Workstation Name: [id number] Transcribed By: EB Dictated By: Stephie Sutton MD Electronically Authenticated By: Stephie Sutton MD Signed Date/Time: 03/10/20218 DD/ 7 TD/TT: - Medical Decision Making 49-year-old -[place] female presents to the emergency room for left knee and leg pain. Patient states that she had jumped off a roof of a car a week or 4 months ago and now she is been having pain left leg. Patient states she is tried Tylenol or ibuprofen [employer] pause with no resolution of pain. Critical care attestation.: If time is entered above; I have spent that time in minutes in the direct care of this critically ill patient, excluding procedure time. ED Disposition Clinical Impression: Left anterior knee pain, Posterior left knee pain Disposition: - TO HOME OR SELFCARE Is pt being admited?: No Does the pt Need Aspirin: No Condition: Stable Instructions: Arthralgia (ED) Additional Instructions: X-ray and ultrasound is negative for fracture or a DVT/clot. I recommend following up with an orthopedic provider for further evaluation. Recommend Tylenol or ibuprofen as needed for pain management. You can get [id number] knee brace that will help with some of the discomfort. Referrals: PRIMARY CARE, [Primary Care Provider] - 3-5 Days KRISTAL INFANTE MD [Staff Physician] - 3-5 Days Forms: Work/School Release Form(ED)
== END 2020-03-10 09:41 | disposition home or self-care (01) ==
LOC: ED 01:10
DX: M25.562 Pain in left knee (principal); J45.909 Unspecified asthma, uncomplicated; D64.9 Anemia, unspecified; F12.90 Cannabis use, unspecified, uncomplicated; F17.200 Nicotine dependence, unspecified, uncomplicated; Z79.899 Other long term (current) drug therapy; Z88.8 Allergy status to other drugs, medicaments and biological substances; Z88.2 Allergy status to sulfonamides; Z98.890 Other specified postprocedural states

== ENCOUNTER 2020-04-09 05:33 | Emergency (ER) | payer SELFPAY ==
--- NOTE | 2020-04-09 06:17 | XRay Report ---
CHEST 2 VIEWS INDICATION / CLINICAL INFORMATION: Difficulty breathing. COMPARISON: None available. FINDINGS: SUPPORT DEVICES: None. HEART / MEDIASTINUM: No significant abnormality. LUNGS / PLEURA: No significant pulmonary or pleural abnormality. No pneumothorax. ADDITIONAL FINDINGS: No significant additional findings. IMPRESSION: 1. No acute findings. Signer Name: Tin Linder MD Signed: 04/09/2020 6:12 AM Workstation Name: [id number]
[2020-04-09 06:22] LABS: Blood Urea Nitrogen 8 mg/dL (7-17); Calcium 9.2 mg/dL (8.4-10.2); Hemolysis Index 4
[2020-04-09 06:23] LABS: Hematocrit 26.2 % (30.3-42.9); Hemoglobin 7.9 gm/dl (10.1-14.3); Mean Corpuscular HGB Conc 30 % (30-34); Mean Corpuscular Volume 72 fl (79-97); Platelet Count 259 K/mm3 (140-440); Red Blood Count 3.64 M/mm3 (3.65-5.03)
[2020-04-09 06:26] LABS: Red Cell Distribution Width 25.6 % (13.2-15.2)
[2020-04-09 06:30] LABS: BUN/Creatinine Ratio 16
[2020-04-09 07:07] LABS: Total Cells Counted 100
[2020-04-09 07:08] LABS: Anisocytosis 2+; Hypochromasia 2+; Ovalocytes Few; Tear Drop Cells Few
[2020-04-09 07:09] LABS: Platelet Estimate Consistent w Auto
--- NOTE | 2020-04-09 07:57 | Emergency Department Report ---
ED General Adult HPI - General Chief complaint: Dyspnea/Respdistress Stated complaint: CUAUHTEMOC/LIGHTHEADED/STUFF NOSE Time Seen by Provider: 04/09/20 07:29 Source: patient Mode of arrival: Ambulatory Limitations: No Limitations - History of Present Illness Initial comments: 49-year-old female states she was doing a double shift at work that she felt weak. He states that over the last several days to week she has nasal stuffiness. She has had some dyspnea on exertion. She states that she has persistent heavy periods and the last one was a week ago. He has been seen at this facility for DUB. She had a hemoglobin of 4.4 and she was transfused in the emergency department and released. Patient states that she did not follow- up with a range feeder. He states that she took a "65 mg iron tablet" for the first time last night. Her main concern at this point is her "sinuses". -: Gradual, days(s), week(s) Location: face ("Sinuses") Severity scale (0 -10): 0 Associated Symptoms: denies other symptoms, nausea/vomiting (Nausea resolved no vomiting), shortness of breath (Dyspnea on exertion), other (Nasal congestion) Treatments Prior to Arrival: none - Related Data Previous Rx's Medication Instructions Recorded Last Taken Type Albuterol Sulfate [Ventolin HFA] 2 puff IH Q4H PRN #1 hfa.aer.ad 11/09/14 Unknown Rx Acetaminophen/Codeine [Tylenol #3] 1 tab PO Q6H PRN #15 tab 07/29/15 Unknown Rx Ibuprofen [Motrin 800 MG tab] 800 mg PO Q8HR PRN #30 tablet 07/29/15 Unknown Rx Sulfamethoxazole/Trimethoprim 1 each PO BID #14 tablet 07/29/15 Unknown Rx [Bactrim DS TAB] Amoxicillin/Potassium Clav 1 each PO TID #21 tablet 01/05/19 Unknown Rx [Augmentin 500-125 Tablet] Ketorolac [Toradol] 10 mg PO Q8H PRN #10 tablet 01/05/19 Unknown Rx Docusate Sodium [Colace] 100 mg PO BID PRN #20 capsule 05/27/19 Unknown Rx Ferrous Sulfate [Ferrous Sulfate 300 mg PO DAILY 30 Days ml 05/27/19 Unknown Rx Oral Liq 300 Mg/5 Ml] Mag Hydrox/Aluminum Hyd/Simeth 20 ml PO BID PRN #1 oral.susp 05/27/19 Unknown Rx [Maalox Advanced Suspension] Pantoprazole [Protonix TAB] 20 mg PO QDAY #20 tablet. 05/27/19 Unknown Rx Azithromycin 500 mg PO DAILY #1 pack 04/09/20 Unknown Rx Ferrous Gluconate [Ferrous 324 mg PO TID #20 tablet 04/09/20 Unknown Rx Gluconate 324 MG] Allergies Allergy/AdvReac Type Severity Reaction Status Date / Time Sulfa (Sulfonamide Allergy Unknown Verified 01/05/19 02:18 Antibiotics) hydrocodone AdvReac Unknown Verified 01/05/19 02:18 ED Review of Systems ROS: Stated complaint: CUAUHTEMOC/LIGHTHEADED/STUFF NOSE Other details as noted in HPI Constitutional: denies: chills, fever Eyes: denies: eye pain, eye discharge, vision change ENT: as per HPI. denies: ear pain, throat pain Respiratory: SOB with exertion. denies: cough, shortness of breath, wheezing Cardiovascular: denies: chest pain, palpitations Endocrine: no symptoms reported Gastrointestinal: denies: abdominal pain, nausea, diarrhea Genitourinary: denies: urgency, dysuria, discharge Musculoskeletal: denies: back pain, joint swelling, arthralgia Skin: denies: rash, lesions Neurological: denies: headache, weakness, paresthesias Psychiatric: denies: anxiety, depression Hematological/Lymphatic: denies: easy bleeding, easy bruising ED Past Medical Hx - Past Medical History Previous Medical History?: Yes Hx Asthma: Yes Additional medical history: bronchitis, Heart Murmur, Anemia - Surgical History Past Surgical History?: Yes Additional Surgical History: removal of scar tissue, lap - Social History Smoking Status: Current Every Day Smoker Substance Use Type: None - Medications Home Medications: Home Medications Medication Instructions Recorded Confirmed Last Taken Type Albuterol Sulfate [Ventolin HFA] 2 puff IH Q4H PRN #1 hfa.aer.ad 11/09/14 Unknown Rx Acetaminophen/Codeine [Tylenol #3] 1 tab PO Q6H PRN #15 tab 07/29/15 Unknown Rx Ibuprofen [Motrin 800 MG tab] 800 mg PO Q8HR PRN #30 tablet 07/29/15 Unknown Rx Sulfamethoxazole/Trimethoprim 1 each PO BID #14 tablet 07/29/15 Unknown Rx [Bactrim DS TAB] Amoxicillin/Potassium Clav 1 each PO TID #21 tablet 01/05/19 Unknown Rx [Augmentin 500-125 Tablet] Ketorolac [Toradol] 10 mg PO Q8H PRN #10 tablet 01/05/19 Unknown Rx Docusate Sodium [Colace] 100 mg PO BID PRN #20 capsule 05/27/19 Unknown Rx Ferrous Sulfate [Ferrous Sulfate 300 mg PO DAILY 30 Days ml 05/27/19 Unknown Rx Oral Liq 300 Mg/5 Ml] Mag Hydrox/Aluminum Hyd/Simeth 20 ml PO BID PRN #1 oral.susp 05/27/19 Unknown Rx [Maalox Advanced Suspension] Pantoprazole [Protonix TAB] 20 mg PO QDAY #20 tablet.dr 05/27/19 Unknown Rx Azithromycin 500 mg PO DAILY #1 pack 04/09/20 Unknown Rx Ferrous Gluconate [Ferrous 324 mg PO TID #20 tablet 04/09/20 Unknown Rx Gluconate 324 MG] ED Physical Exam - General Limitations: No Limitations General appearance: alert, in no apparent distress - Head Head exam: Present: atraumatic, normocephalic - Eye Eye exam: Present: normal appearance. Absent: scleral icterus - ENT ENT exam: Present: normal orophraynx, mucous membranes moist, other (No facial swelling. States some discomfort to malar pressure) - Neck Neck exam: Present: normal inspection - Respiratory Respiratory exam: Present: normal lung sounds bilaterally. Absent: respiratory distress - Cardiovascular Cardiovascular Exam: Present: regular rate, normal rhythm. Absent: systolic murmur, diastolic murmur, rubs, gallop - GI/Abdominal GI/Abdominal exam: Present: soft, normal bowel sounds. Absent: distended, tenderness, guarding, rebound - Extremities Exam Extremities exam: Present: normal inspection - Back Exam Back exam: Present: normal inspection - Neurological Exam Neurological exam: Present: alert, oriented X3, CN II-XII intact. Absent: motor sensory deficit - Psychiatric Psychiatric exam: Present: normal affect, normal mood - Skin Skin exam: Present: warm, dry, intact, normal color. Absent: rash ED Course Vital Signs 04/09/20 04/09/20 05:45 07:48 Temperature 98.1 F Pulse Rate 98 H Respiratory 20 18 Rate Blood Pressure 146/77 [Left] O2 Sat by Pulse 99 100 Oximetry ED Medical Decision Making - Lab Data Result diagrams: 04/09/20 05:44 04/09/20 05:44 Laboratory Results - last 24 hr 04/09/20 04/09/20 04/09/20 05:44 05:44 05:47 WBC 6.1 RBC 3.64 L Hgb 7.9 L Hct 26.2 L MCV 72 L MCH 22 L MCHC 30 RDW 25.6 H Plt Count 259 Add Manual Diff Complete Total Counted 100 Seg Neuts % (Manual) 68.0 Band Neutrophils % 0 Lymphocytes % (Manual) 23.0 Reactive Lymphs % (Man) 0 Monocytes % (Manual) 4.0 Eosinophils % (Manual) 4.0 Basophils % (Manual) 1.0 Metamyelocytes % 0 Myelocytes % 0 Promyelocytes % 0 Blast Cells % 0 Nucleated RBC % Not Reportable Seg Neutrophils # Man 4.1 Band Neutrophils # 0.0 Lymphocytes # (Manual) 1.4 Abs React Lymphs (Man) 0.0 Monocytes # (Manual) 0.2 Eosinophils # (Manual) 0.2 Basophils # (Manual) 0.1 Metamyelocytes # 0.0 Myelocytes # 0.0 Promyelocytes # 0.0 Blast Cells # 0.0 WBC Morphology Not Reportable Hypersegmented Neuts Not Reportable Hyposegmented Neuts Not Reportable Hypogranular Neuts Not Reportable Smudge Cells Not Reportable Toxic Granulation Not Reportable Toxic Vacuolation Not Reportable Dohle Bodies Not Reportable Pelger-Huet Anomaly Not Reportable Austyn Rods Not Reportable Platelet Estimate Consistent w auto Clumped Platelets Not Reportable Plt Clumps, EDTA Not Reportable Large Platelets Not Reportable Giant Platelets Not Reportable Platelet Satelliting Not Reportable Plt Morphology Comment Not Reportable RBC Morphology Not Reportable Dimorphic RBCs Not Reportable Polychromasia Not Reportable Hypochromasia 2+ Poikilocytosis Not Reportable Anisocytosis 2+ Microcytosis Not Reportable Macrocytosis Not Reportable Spherocytes Not Reportable Pappenheimer Bodies Not Reportable Sickle Cells Not Reportable Target Cells Not Reportable Tear Drop Cells Few Ovalocytes Few Helmet Cells Not Reportable [place] Bodies Not Reportable [place] Rings Not Reportable Ann Cells Not Reportable Bite Cells Not Reportable Crenated Cell Not Reportable Elliptocytes Not Reportable Acanthocytes (Spur) Not Reportable Rouleaux Not Reportable Hemoglobin C Crystals Not Reportable Schistocytes Not Reportable Malaria parasites Not Reportable [place] Bodies Not Reportable Hem Pathologist Commnt No Sodium 139 Potassium 3.6 Chloride 102.4 Carbon Dioxide 22 Anion Gap 18 BUN 8 Creatinine 0.5 L Estimated GFR > 60 BUN/Creatinine Ratio 16 Glucose 108 H Calcium 9.2 HCG, Qual Negative - Radiology Data Radiology results: report reviewed (Chest x-ray no acute process) Critical care attestation.: If time is entered above; I have spent that time in minutes in the direct care of this critically ill patient, excluding procedure time. ED Disposition Clinical Impression: Iron deficiency anemia Qualifiers: Iron deficiency anemia type: chronic blood loss Qualified Code(s): D50.0 - Iron deficiency anemia secondary to blood loss (chronic) Sinusitis, acute Qualifiers: Sinusitis location: unspecified location Recurrence: recurrent Qualified Code(s): J01.91 - Acute recurrent sinusitis, unspecified Disposition: TO HOME OR SELFCARE Is pt being admited?: No Does the pt Need Aspirin: No Condition: Stable Instructions: Iron Rich Diet (ED), Iron Deficiency Anemia (ED), Sinusitis (ED) Additional Instructions: Follow-up with medical clinic and range feeder. Return any acute change or problem. It is important that you did take the iron replacement or you may require transfusion and in the future. Definitive care of your heavy periods per range feeder. Prescriptions: Azithromycin 500 mg PO DAILY #1 pack Ferrous Gluconate [Ferrous Gluconate 324 MG] 324 mg PO TID #20 tablet Referrals: WARREN GALARZA MD [Primary Care Provider] - 3-5 Days [facility] [Provider Group] - 3-5 Days BESS SHANE MD [Staff Physician] - 3-5 Days Time of Disposition: 08:01
[2020-04-09 08:07] VITALS: BP 122/68
== END 2020-04-09 08:16 | disposition home or self-care (01) ==
LOC: ED 05:33
DX: J01.91 Acute recurrent sinusitis, unspecified (principal); D50.0 Iron deficiency anemia secondary to blood loss (chronic); J45.909 Unspecified asthma, uncomplicated; F17.200 Nicotine dependence, unspecified, uncomplicated; Z79.899 Other long term (current) drug therapy; Z88.2 Allergy status to sulfonamides; Z88.6 Allergy status to analgesic agent
CPT/HCPCS: 36415; 71046; 80048; 84703; 85007; 85025

== ENCOUNTER 2021-07-14 22:20 | Emergency (ER) | payer OTHER ==
[2021-07-14 22:25] VITALS: BP 138/82
--- NOTE | 2021-07-15 01:44 | Emergency Department Report ---
ED General Adult HPI - General Chief complaint: Dizziness Stated complaint: DIZZINESS AND CHEST PAIN Time Seen by Provider: 07/15/21 01:33 Source: patient Mode of arrival: Ambulatory Limitations: No Limitations - History of Present Illness Initial comments: Patient is a 51-year-old F Sw[place] female who was diagnosed as COVID-19 positive On July 03. Patient states initially she just had a mild cough however over the last 2 days she states she feels some mild chest tightness generalized body aches and headache. Patient denies any nausea vomiting diarrhea at this time. States that she is blowing her nose quite a bit and her sputum is yellow in color. - Related Data Previous Rx's Medication Instructions Recorded Last Taken Type Albuterol Sulfate [Ventolin HFA] 2 puff IH Q4H PRN #1 hfa.aer.ad 11/09/14 Unknown Rx Acetaminophen/Codeine [Tylenol #3] 1 tab PO Q6H PRN #15 tab 07/29/15 Unknown Rx Ibuprofen [Motrin 800 MG tab] 800 mg PO Q8HR PRN #30 tablet 07/29/15 Unknown Rx Sulfamethoxazole/Trimethoprim 1 each PO BID #14 tablet 07/29/15 Unknown Rx [Bactrim DS TAB] Amoxicillin/Potassium Clav 1 each PO TID #21 tablet 01/05/19 Unknown Rx [Augmentin 500-125 Tablet] Ketorolac [Toradol] 10 mg PO Q8H PRN #10 tablet 01/05/19 Unknown Rx Docusate Sodium [Colace] 100 mg PO BID PRN #20 capsule 05/27/19 Unknown Rx Ferrous Sulfate [Ferrous Sulfate 300 mg PO DAILY 30 Days ml 05/27/19 Unknown Rx Oral Liq 300 Mg/5 Ml] Mag Hydrox/Aluminum Hyd/Simeth 20 ml PO BID PRN #1 oral.susp 05/27/19 Unknown Rx [Maalox Advanced Suspension] Pantoprazole [Protonix TAB] 20 mg PO QDAY #20 tablet.dr 05/27/19 Unknown Rx Azithromycin 500 mg PO DAILY #1 pack 04/09/20 Unknown Rx Ferrous Gluconate [Ferrous 324 mg PO TID #20 tablet 04/09/20 Unknown Rx Gluconate 324 MG] Albuterol Mdi (or & Nicu Only) 2 puff IH QID PRN #1 inhalation 07/15/21 Unknown Rx [ProAir HFA Inhaler] Azithromycin [Zithromax Z-ROBERTO] 250 mg PO DAILY #6 tablet 07/15/21 Unknown Rx Dexamethasone [Decadron] 6 mg PO DAILY #5 tablet 07/15/21 Unknown Rx Fluticasone [Flonase] 1 spray NS QDAY #1 bottle 07/15/21 Unknown Rx Ketorolac [Toradol] 10 mg PO Q6H PRN #12 tablet 07/15/21 Unknown Rx Allergies Allergy/AdvReac Type Severity Reaction Status Date / Time Sulfa (Sulfonamide Allergy Unknown Verified 01/05/19 02:18 Antibiotics) hydrocodone AdvReac Unknown Verified 01/05/19 02:18 ED Review of Systems ROS: Stated complaint: DIZZINESS AND CHEST PAIN Other details as noted in HPI Comment: All other systems reviewed and negative ED Past Medical Hx - Past Medical History Previous Medical History?: Yes Hx Asthma: Yes Additional medical history: bronchitis, Heart Murmur, Anemia - Surgical History Past Surgical History?: Yes Additional Surgical History: removal of scar tissue, lap - Social History Smoking Status: Current Every Day Smoker Substance Use Type: None - Medications Home Medications: Home Medications Medication Instructions Recorded Confirmed Last Taken Type Albuterol Sulfate [Ventolin HFA] 2 puff IH Q4H PRN #1 hfa.aer.ad 11/09/14 07/28/15 Unknown Rx Acetaminophen/Codeine [Tylenol #3] 1 tab PO Q6H PRN #15 tab 07/29/15 Unknown Rx Ibuprofen [Motrin 800 MG tab] 800 mg PO Q8HR PRN #30 tablet 07/29/15 Unknown Rx Sulfamethoxazole/Trimethoprim 1 each PO BID #14 tablet 07/29/15 Unknown Rx [Bactrim DS TAB] Amoxicillin/Potassium Clav 1 each PO TID #21 tablet 01/05/19 Unknown Rx [Augmentin 500-125 Tablet] Ketorolac [Toradol] 10 mg PO Q8H PRN #10 tablet 01/05/19 Unknown Rx Docusate Sodium [Colace] 100 mg PO BID PRN #20 capsule 05/27/19 Unknown Rx Ferrous Sulfate [Ferrous Sulfate 300 mg PO DAILY 30 Days ml 05/27/19 Unknown Rx Oral Liq 300 Mg/5 Ml] Mag Hydrox/Aluminum Hyd/Simeth 20 ml PO BID PRN #1 oral.susp 05/27/19 Unknown Rx [Maalox Advanced Suspension] Pantoprazole [Protonix TAB] 20 mg PO QDAY #20 tablet. 05/27/19 Unknown Rx Azithromycin 500 mg PO DAILY #1 pack 04/09/20 Unknown Rx Ferrous Gluconate [Ferrous 324 mg PO TID #20 tablet 04/09/20 Unknown Rx Gluconate 324 MG] Albuterol Mdi (or & Nicu Only) 2 puff IH QID PRN #1 inhalation 07/15/21 Unknown Rx [ProAir HFA Inhaler] Azithromycin [Zithromax Z-ROBERTO] 250 mg PO DAILY #6 tablet 07/15/21 Unknown Rx Dexamethasone [Decadron] 6 mg PO DAILY #5 tablet 07/15/21 Unknown Rx Fluticasone [Flonase] 1 spray NS QDAY #1 bottle 07/15/21 Unknown Rx Ketorolac [Toradol] 10 mg PO Q6H PRN #12 tablet 07/15/21 Unknown Rx ED Physical Exam - General Limitations: No Limitations General appearance: alert, in no apparent distress - Head Head exam: Present: atraumatic, normocephalic - Eye Eye exam: Present: normal appearance - ENT ENT exam: Present: mucous membranes moist - Neck Neck exam: Present: normal inspection - Respiratory Respiratory exam: Present: normal lung sounds bilaterally. Absent: respiratory distress, wheezes, rales, rhonchi - Cardiovascular Cardiovascular Exam: Present: regular rate, normal rhythm, normal heart sounds. Absent: systolic murmur, diastolic murmur, rubs, gallop - GI/Abdominal GI/Abdominal exam: Present: soft, normal bowel sounds. Absent: distended, tenderness, guarding, rebound - Extremities Exam Extremities exam: Present: normal inspection - Back Exam Back exam: Present: normal inspection - Neurological Exam Neurological exam: Present: alert, oriented X3 - Psychiatric Psychiatric exam: Present: normal affect, normal mood - Skin Skin exam: Present: warm, dry, intact, normal color. Absent: rash ED Course Vital Signs 07/14/21 22:23 Temperature 98.7 F Pulse Rate 81 Respiratory 18 Rate Blood Pressure 138/82 O2 Sat by Pulse 100 Oximetry ED Medical Decision Making - Medical Decision Making Patient's lungs are clear and oxygen levels with normal limits. Patient has just been taking medications [id number]. Will prescribe medication for symptomatic relief for the patient. Critical care attestation.: If time is entered above; I have spent that time in minutes in the direct care of this critically ill patient, excluding procedure time. ED Disposition Clinical Impression: COVID, Sinusitis, acute Disposition: 01 HOME / SELF CARE / HOMELESS Is pt being admited?: No Does the pt Need Aspirin: No Condition: Stable Instructions: Sinusitis, Adult, [id number], COVID-19 Frequently Asked Questions Referrals: [facility] MD AMY [Referring] - 3-5 Days Time of Disposition: 01:44
== END 2021-07-15 02:20 | disposition home or self-care (01) ==
LOC: ED 22:20
DX: U07.1 COVID-19 (principal); J01.90 Acute sinusitis, unspecified; F17.200 Nicotine dependence, unspecified, uncomplicated; Z88.2 Allergy status to sulfonamides; Z88.5 Allergy status to narcotic agent; J45.909 Unspecified asthma, uncomplicated
CPT/HCPCS: 99282

== ENCOUNTER 2021-08-16 22:27 | Emergency (ER) | payer SELFPAY ==
[2021-08-16 23:03] VITALS: BP 110/68
[2021-08-17] MEDS ORDERED: diphenhydrAMINE 25 MG CAP PO ONE (02:15)
--- NOTE | 2021-08-17 02:19 | Emergency Department Report ---
ED General Adult HPI - General Chief complaint: Allergic Reaction Stated complaint: BAD RASH Source: patient Mode of arrival: Ambulatory Limitations: No Limitations - History of Present Illness Initial comments: Patient is a 51-year-old -[place] female with a history of asthma presents to the ED with complaint of acute onset persistent itchy dry scaly erythematous maculopapular rashes for the last 1 week. Patient states that she has been using hydrocortisone cream with no relief. Patient denies fever, chills, nausea, vomiting, dizziness, syncope, chest pain, shortness of breath, abdominal pain, cough, traumatic injury, nasal and sinus congestion or sore throat. MD Complaint: Itchy erythematous rashes under breasts -: Sudden, week(s) (1) Location: chest Radiation: non-radiation Severity scale (0 -10): 7 Quality: burning, aching, dull Consistency: constant Improves with: none Worsens with: none Associated Symptoms: denies other symptoms, rash (Erythematous maculopapular dry scaly rashes under the breasts bilaterally). denies: confusion, chest pain, cough, diaphoresis, fever/chills, headaches, loss of appetite, malaise, nausea/vomiting, shortness of breath, syncope Treatments Prior to Arrival: none - Related Data Previous Rx's Medication Instructions Recorded Last Taken Type Albuterol Sulfate [Ventolin HFA] 2 puff IH Q4H PRN #1 hfa.aer.ad 11/09/14 Unknown Rx Acetaminophen/Codeine [Tylenol #3] 1 tab PO Q6H PRN #15 tab 07/29/15 Unknown Rx Ibuprofen [Motrin 800 MG tab] 800 mg PO Q8HR PRN #30 tablet 07/29/15 Unknown Rx Sulfamethoxazole/Trimethoprim 1 each PO BID #14 tablet 07/29/15 Unknown Rx [Bactrim DS TAB] Amoxicillin/Potassium Clav 1 each PO TID #21 tablet 01/05/19 Unknown Rx [Augmentin 500-125 Tablet] Ketorolac [Toradol] 10 mg PO Q8H PRN #10 tablet 01/05/19 Unknown Rx Docusate Sodium [Colace] 100 mg PO BID PRN #20 capsule 05/27/19 Unknown Rx Ferrous Sulfate [Ferrous Sulfate 300 mg PO DAILY 30 Days ml 05/27/19 Unknown Rx Oral Liq 300 Mg/5 Ml] Mag Hydrox/Aluminum Hyd/Simeth 20 ml PO BID PRN #1 oral.susp 05/27/19 Unknown Rx [Maalox Advanced Suspension] Pantoprazole [Protonix TAB] 20 mg PO QDAY #20 tablet. 05/27/19 Unknown Rx Azithromycin 500 mg PO DAILY #1 pack 04/09/20 Unknown Rx Ferrous Gluconate [Ferrous 324 mg PO TID #20 tablet 04/09/20 Unknown Rx Gluconate 324 MG] Albuterol Mdi (or & Nicu Only) 2 puff IH QID PRN #1 inhalation 07/15/21 Unknown Rx [ProAir HFA Inhaler] Azithromycin [Zithromax Z-ROBERTO] 250 mg PO DAILY #6 tablet 07/15/21 Unknown Rx Dexamethasone [Decadron] 6 mg PO DAILY #5 tablet 07/15/21 Unknown Rx Fluticasone [Flonase] 1 spray NS QDAY #1 bottle 07/15/21 Unknown Rx Ibuprofen [Motrin 600 MG tab] 600 mg PO Q8H PRN #20 tablet 07/15/21 Unknown Rx Ketorolac [Toradol] 10 mg PO Q6H PRN #12 tablet 07/15/21 Unknown Rx Nystatin Oint [Mycostatin Oint] 1 applicatio TP BID #1 tube 08/17/21 Unknown Rx diphenhydrAMINE [Benadryl CAP] 50 mg PO Q8HR PRN #30 capsule 08/17/21 Unknown Rx terbinafine HCL [Terbinafine HCl] 250 mg PO DAILY #14 08/17/21 Unknown Rx Allergies Allergy/AdvReac Type Severity Reaction Status Date / Time Sulfa (Sulfonamide Allergy Unknown Verified 01/05/19 02:18 Antibiotics) hydrocodone AdvReac Unknown Verified 01/05/19 02:18 ED Review of Systems ROS: Stated complaint: BAD RASH Other details as noted in HPI Constitutional: denies: chills, fever Eyes: denies: eye pain, eye discharge, vision change ENT: denies: ear pain, throat pain Respiratory: denies: cough, shortness of breath, wheezing Cardiovascular: denies: chest pain, palpitations Endocrine: no symptoms reported Gastrointestinal: denies: abdominal pain, nausea, diarrhea Genitourinary: denies: urgency, dysuria, discharge Musculoskeletal: denies: back pain, joint swelling, arthralgia Skin: rash (Mild erythematous dry scaly rashes under the breasts and chest wall), change in color, pruritus. denies: lesions Neurological: denies: headache, weakness, paresthesias Psychiatric: denies: anxiety, depression Hematological/Lymphatic: denies: easy bleeding, easy bruising ED Past Medical Hx - Past Medical History Previous Medical History?: Yes Hx Asthma: Yes Additional medical history: bronchitis, Heart Murmur, Anemia - Surgical History Past Surgical History?: Yes Additional Surgical History: removal of scar tissue, lap - Social History Smoking Status: Current Every Day Smoker Substance Use Type: None - Medications Home Medications: Home Medications Medication Instructions Recorded Confirmed Last Taken Type Albuterol Sulfate [Ventolin HFA] 2 puff IH Q4H PRN #1 hfa.aer.ad 11/09/14 07/28/15 Unknown Rx Acetaminophen/Codeine [Tylenol #3] 1 tab PO Q6H PRN #15 tab 07/29/15 Unknown Rx Ibuprofen [Motrin 800 MG tab] 800 mg PO Q8HR PRN #30 tablet 07/29/15 Unknown Rx Sulfamethoxazole/Trimethoprim 1 each PO BID #14 tablet 07/29/15 Unknown Rx [Bactrim DS TAB] Amoxicillin/Potassium Clav 1 each PO TID #21 tablet 01/05/19 Unknown Rx [Augmentin 500-125 Tablet] Ketorolac [Toradol] 10 mg PO Q8H PRN #10 tablet 01/05/19 Unknown Rx Docusate Sodium [Colace] 100 mg PO BID PRN #20 capsule 05/27/19 Unknown Rx Ferrous Sulfate [Ferrous Sulfate 300 mg PO DAILY 30 Days ml 05/27/19 Unknown Rx Oral Liq 300 Mg/5 Ml] Mag Hydrox/Aluminum Hyd/Simeth 20 ml PO BID PRN #1 oral.susp 05/27/19 Unknown Rx [Maalox Advanced Suspension] Pantoprazole [Protonix TAB] 20 mg PO QDAY #20 tablet.dr 05/27/19 Unknown Rx Azithromycin 500 mg PO DAILY #1 pack 04/09/20 Unknown Rx Ferrous Gluconate [Ferrous 324 mg PO TID #20 tablet 04/09/20 Unknown Rx Gluconate 324 MG] Albuterol Mdi (or & Nicu Only) 2 puff IH QID PRN #1 inhalation 07/15/21 Unknown Rx [ProAir HFA Inhaler] Azithromycin [Zithromax Z-ROBERTO] 250 mg PO DAILY #6 tablet 07/15/21 Unknown Rx Dexamethasone [Decadron] 6 mg PO DAILY #5 tablet 07/15/21 Unknown Rx Fluticasone [Flonase] 1 spray NS QDAY #1 bottle 07/15/21 Unknown Rx Ibuprofen [Motrin 600 MG tab] 600 mg PO Q8H PRN #20 tablet 07/15/21 Unknown Rx Ketorolac [Toradol] 10 mg PO Q6H PRN #12 tablet 07/15/21 Unknown Rx Nystatin Oint [Mycostatin Oint] 1 applicatio TP BID #1 tube 08/17/21 Unknown Rx diphenhydrAMINE [Benadryl CAP] 50 mg PO Q8HR PRN #30 capsule 08/17/21 Unknown Rx terbinafine HCL [Terbinafine HCl] 250 mg PO DAILY #14 08/17/21 Unknown Rx ED Physical Exam - General Limitations: No Limitations General appearance: alert, in no apparent distress - Head Head exam: Present: atraumatic, normocephalic, normal inspection - Eye Eye exam: Present: normal appearance, PERRL, EOMI Pupils: Present: normal accommodation - ENT ENT exam: Present: normal exam, normal orophraynx, mucous membranes moist, TM's normal bilaterally, normal external ear exam - Neck Neck exam: Present: normal inspection, full ROM - Respiratory Respiratory exam: Present: normal lung sounds bilaterally. Absent: respiratory distress, wheezes, rales, chest wall tenderness, accessory muscle use, decreased breath sounds, prolonged expiratory - Cardiovascular Cardiovascular Exam: Present: regular rate, normal rhythm, normal heart sounds. Absent: systolic murmur, diastolic murmur, rubs, gallop - GI/Abdominal GI/Abdominal exam: Present: soft, normal bowel sounds. Absent: tenderness, guarding, rebound, hyperactive bowel sounds, hypoactive bowel sounds - Extremities Exam Extremities exam: Present: normal inspection, full ROM, normal capillary refill - Back Exam Back exam: Present: normal inspection, full ROM. Absent: tenderness, CVA tenderness (R), CVA tenderness (L), muscle spasm, paraspinal tenderness - Neurological Exam Neurological exam: Present: alert, oriented X3, CN II-XII intact, normal gait, reflexes normal - Psychiatric Psychiatric exam: Present: normal affect, normal mood - Skin Skin exam: Present: warm, dry, intact, rash (Mild erythematous maculopapular dry scaly rashes in the skin folds under the breasts and on the chest wall), erythema. Absent: normal color ED Course Vital Signs 08/16/21 23:01 Temperature 99.2 F Pulse Rate 88 Respiratory 18 Rate Blood Pressure 110/68 O2 Sat by Pulse 100 Oximetry ED Medical Decision Making - Medical Decision Making This is a 51-year-old -[place] female with a history of asthma presents to the ED with complaint of acute onset persistent itchy dry scaly erythematous maculopapular rashes for the last 1 week. Patient states that she has been using hydrocortisone cream with no relief. In the ED, patient is alert and oriented x3 and is not in any distress. Patient was treated for itching in the ED with Benadryl and discharged home on medications based on the history and physical exam findings, and was advised to follow-up with her primary care physician in 7 to 10 days for reevaluation or return to the ED immediately if symptoms get worse. - Differential Diagnosis Tinea corporis; allergic reaction; irritant dermatitis; cellulitis; Critical care attestation.: If time is entered above; I have spent that time in minutes in the direct care of this critically ill patient, excluding procedure time. ED Disposition Clinical Impression: Tinea corporis, Itching with irritation Disposition: HOME / SELF CARE / HOMELESS Is pt being admited?: No Does the pt Need Aspirin: No Condition: Stable Instructions: Body Ringworm, Pruritus Additional Instructions: Take and apply the medication as advised, drink plenty of fluids, follow-up with the primary care physician in 7 to 10 days for reevaluation. Return to the ED immediately if symptoms get worse. Prescriptions: diphenhydrAMINE [Benadryl CAP] 50 mg PO Q8HR PRN #30 capsule PRN Reason: Itching Nystatin Oint [Mycostatin Oint] 1 applicatio TP BID #1 tube terbinafine HCL [Terbinafine HCl] 250 mg PO DAILY #14 Referrals: [facility] [Provider Group] - 7-10 days Time of Disposition: 02:17 Print Language: NEPALESE
== END 2021-08-17 03:34 | disposition home or self-care (01) ==
LOC: ED 22:27
DX: B35.4 Tinea corporis (principal); R21 Rash and other nonspecific skin eruption; Z88.2 Allergy status to sulfonamides; F17.200 Nicotine dependence, unspecified, uncomplicated; J45.909 Unspecified asthma, uncomplicated
CPT/HCPCS: 99282

== ENCOUNTER 2021-11-27 19:10 | Emergency (ER) | payer SELFPAY ==
--- NOTE | 2021-11-27 21:40 | XRay Report ---
CHEST 2 VIEWS INDICATION / CLINICAL INFORMATION: CONGESTION. COMPARISON: 04/09/2020 FINDINGS: SUPPORT DEVICES: None. HEART / MEDIASTINUM: No significant abnormality. LUNGS / PLEURA: No significant pulmonary or pleural abnormality. No pneumothorax. ADDITIONAL FINDINGS: No significant additional findings. IMPRESSION: 1. No acute findings. Signer Name: Jed Jones DO Signed: 11/27/2021 9:36 PM Workstation Name: [id number]
[2021-11-28] MEDS ORDERED: IBUPROFEN 800 MG TAB PO ONE (02:12)
--- NOTE | 2021-11-28 02:50 | Emergency Department Report ---
ED General Adult HPI - General Chief complaint: Upper Respiratory Infection Stated complaint: FEELING HORRIBLE Time Seen by Provider: 11/28/21 02:11 Source: patient Mode of arrival: Ambulatory Limitations: No Limitations - History of Present Illness Initial comments: Patient complains of head congestion with cough productive x3 weeks. Cough is clear is clear and thick. Patient denies fevers chills no nausea or vomiting. There is mild malaise today there is no abdominal pain patient is status post menopause no concern for however there is no dysuria frequency urgency or discharge. Symptoms are exacerbated by coughing. Symptoms are relieved by coughing. Patient denies smoking. Severity scale (0 -10): 5 - Related Data Previous Rx's Medication Instructions Recorded Last Taken Type Albuterol Sulfate [Ventolin HFA] 2 puff IH Q4H PRN #1 hfa.aer.ad 11/09/14 Un known Rx Acetaminophen/Codeine [Tylenol #3] 1 tab PO Q6H PRN #15 tab 07/29/15 Unknown Rx Ibuprofen [Motrin 800 MG tab] 800 mg PO Q8HR PRN #30 tablet 07/29/15 Unknown Rx Sulfamethoxazole/Trimethoprim 1 each PO BID #14 tablet 07/29/15 Unknown Rx [Bactrim DS TAB] Amoxicillin/Potassium Clav 1 each PO TID #21 tablet 01/05/19 Unknown Rx [Augmentin 500-125 Tablet] Ketorolac [Toradol] 10 mg PO Q8H PRN #10 tablet 01/05/19 Unknown Rx Ferrous Sulfate [Ferrous Sulfate 300 mg PO DAILY 30 Days ml 05/27/19 Unknown Rx Oral Liq 300 Mg/5 Ml] Mag Hydrox/Aluminum Hyd/Simeth 20 ml PO BID PRN #1 oral.susp 05/27/19 Unknown Rx [Maalox Advanced Suspension] Pantoprazole [Protonix TAB] 20 mg PO QDAY #20 tablet.dr 05/27/19 Unknown Rx Azithromycin 500 mg PO DAILY #1 pack 04/09/20 Unknown Rx Ferrous Gluconate [Ferrous 324 mg PO TID #20 tablet 04/09/20 Unknown Rx Gluconate 324 MG] Azithromycin [Zithromax Z-ROBERTO] 250 mg PO DAILY #6 tablet 07/15/21 Unknown Rx Fluticasone [Flonase] 1 spray NS QDAY #1 bottle 07/15/21 Unknown Rx Ibuprofen [Motrin 600 MG tab] 600 mg PO Q8H PRN #20 tablet 07/15/21 Unknown Rx Ketorolac [Toradol] 10 mg PO Q6H PRN #12 tablet 07/15/21 Unknown Rx Nystatin Oint [Mycostatin Oint] 1 applicatio TP BID #1 tube 08/17/21 Unknown Rx diphenhydrAMINE [Benadryl CAP] 50 mg PO Q8HR PRN #30 capsule 08/17/21 Unknown Rx terbinafine HCL [Terbinafine HCl] 250 mg PO DAILY #14 08/17/21 Unknown Rx Albuterol Mdi (or & Nicu Only) 2 puff IH QID PRN #1 inhalation 11/28/21 Unknown Rx [ProAir HFA Inhaler] Dexamethasone [Decadron] 6 mg PO DAILY #5 tablet 11/28/21 Unknown Rx Docusate Sodium [Colace CAP] 100 mg PO BID PRN #20 capsule 11/28/21 Unknown Rx Allergies Allergy/AdvReac Type Severity Reaction Status Date / Time Sulfa (Sulfonamide Allergy Unknown Verified 01/05/19 02:18 Antibiotics) hydrocodone AdvReac Unknown Verified 01/05/19 02:18 ED Review of Systems ROS: Stated complaint: FEELING HORRIBLE Other details as noted in HPI Constitutional: malaise. denies: chills, fever Eyes: denies: eye pain, eye discharge, vision change ENT: as per HPI, congestion. denies: ear pain, throat pain, hearing loss, epistaxis Respiratory: denies: cough, shortness of breath, wheezing Cardiovascular: chest pain (Chest wall pain right lateral). denies: palpitations Endocrine: no symptoms reported Gastrointestinal: denies: abdominal pain, nausea, vomiting, diarrhea Genitourinary: as per HPI Musculoskeletal: back pain. denies: joint swelling, arthralgia Skin: denies: rash, lesions Neurological: denies: headache, weakness, numbness, paresthesias, confusion, vertigo Psychiatric: denies: anxiety, depression Hematological/Lymphatic: as per HPI. denies: easy bleeding, easy bruising ED Past Medical Hx - Past Medical History Hx Asthma: Yes Additional medical history: bronchitis, Heart Murmur, Anemia - Surgical History Additional Surgical History: removal of scar tissue, lap - Social History Smoking Status: Current Every Day Smoker Substance Use Type: None - Medications Home Medications: Home Medications Medication Instructions Recorded Confirmed Last Taken Type Albuterol Sulfate [Ventolin HFA] 2 puff IH Q4H PRN #1 hfa.aer.ad 11/09/14 07/28/15 Unknown Rx Acetaminophen/Codeine [Tylenol #3] 1 tab PO Q6H PRN #15 tab 07/29/15 Unknown Rx Ibuprofen [Motrin 800 MG tab] 800 mg PO Q8HR PRN #30 tablet 07/29/15 Unknown Rx Sulfamethoxazole/Trimethoprim 1 each PO BID #14 tablet 07/29/15 Unknown Rx [Bactrim DS TAB] Amoxicillin/Potassium Clav 1 each PO TID #21 tablet 01/05/19 Unknown Rx [Augmentin 500-125 Tablet] Ketorolac [Toradol] 10 mg PO Q8H PRN #10 tablet 01/05/19 Unknown Rx Ferrous Sulfate [Ferrous Sulfate 300 mg PO DAILY 30 Days ml 05/27/19 Unknown Rx Oral Liq 300 Mg/5 Ml] Mag Hydrox/Aluminum Hyd/Simeth 20 ml PO BID PRN #1 oral.susp 05/27/19 Unknown Rx [Maalox Advanced Suspension] Pantoprazole [Protonix TAB] 20 mg PO QDAY #20 tablet.dr 05/27/19 Unknown Rx Azithromycin 500 mg PO DAILY #1 pack 04/09/20 Unknown Rx Ferrous Gluconate [Ferrous 324 mg PO TID #20 tablet 04/09/20 Unknown Rx Gluconate 324 MG] Azithromycin [Zithromax Z-ROBERTO] 250 mg PO DAILY #6 tablet 07/15/21 Unknown Rx Fluticasone [Flonase] 1 spray NS QDAY #1 bottle 07/15/21 Unknown Rx Ibuprofen [Motrin 600 MG tab] 600 mg PO Q8H PRN #20 tablet 07/15/21 Unknown Rx Ketorolac [Toradol] 10 mg PO Q6H PRN #12 tablet 07/15/21 Unknown Rx Nystatin Oint [Mycostatin Oint] 1 applicatio TP BID #1 tube 08/17/21 Unknown Rx diphenhydrAMINE [Benadryl CAP] 50 mg PO Q8HR PRN #30 capsule 08/17/21 Unknown Rx terbinafine HCL [Terbinafine HCl] 250 mg PO DAILY #14 08/17/21 Unknown Rx Albuterol Mdi (or & Nicu Only) 2 puff IH QID PRN #1 inhalation 11/28/21 Unknown Rx [ProAir HFA Inhaler] Dexamethasone [Decadron] 6 mg PO DAILY #5 tablet 11/28/21 Unknown Rx Docusate Sodium [Colace CAP] 100 mg PO BID PRN #20 capsule 11/28/21 Unknown Rx ED Physical Exam - General Limitations: No Limitations General appearance: alert, in no apparent distress - Head Head exam: Present: normocephalic, normal inspection - Eye Eye exam: Present: normal appearance, PERRL, EOMI. Absent: conjunctival injection, nystagmus - ENT ENT exam: Present: normal exam, normal orophraynx, mucous membranes moist - Neck Neck exam: Present: normal inspection, full ROM. Absent: tenderness, meningismus, lymphadenopathy, thyromegaly - Respiratory Respiratory exam: Present: normal lung sounds bilaterally, chest wall tenderness (Right anterior lateral). Absent: respiratory distress, wheezes, rales, rhonchi, stridor, accessory muscle use - Cardiovascular Cardiovascular Exam: Present: regular rate, normal rhythm, normal heart sounds. Absent: systolic murmur, diastolic murmur, rubs, gallop - GI/Abdominal GI/Abdominal exam: Present: soft, normal bowel sounds. Absent: distended, tenderness, bruit, hernia - Rectal Rectal exam: Present: deferred - Extremities Exam Extremities exam: Present: normal inspection, full ROM, normal capillary refill. Absent: pedal edema, calf tenderness - Back Exam Back exam: Present: normal inspection, full ROM. Absent: CVA tenderness (R), CVA tenderness (L), paraspinal tenderness, vertebral tenderness - Neurological Exam Neurological exam: Present: alert, oriented X3, CN II-XII intact, normal gait, motor sensory deficit, reflexes normal - Psychiatric Psychiatric exam: Present: normal affect, normal mood - Skin Skin exam: Present: warm, dry, intact, normal color. Absent: rash ED Course Vital Signs 11/27/21 20:33 Temperature 98.4 F Pulse Rate 83 Respiratory 18 Rate Blood Pressure 140/72 O2 Sat by Pulse 98 Oximetry ED Medical Decision Making - Radiology Data Radiology results: report reviewed, image reviewed CHEST 2 VIEWS INDICATION / CLINICAL INFORMATION: CONGESTION. COMPARISON: 04/09/2020 FINDINGS: SUPPORT DEVICES: None. HEART / MEDIASTINUM: No significant abnormality. LUNGS / PLEURA: No significant pulmonary or pleural abnormality. No pneumothorax. ADDITIONAL FINDINGS: No significant additional findings. IMPRESSION: 1. No acute findings. Signer Name: Jed Jones DO Signed: 11/27/2021 9:36 PM Workstation Name: [id number] Transcribed By: ASIA Dictated By: JED JONES DO Electronically Authenticated By: JED JONES DO Signed Date/Time: 11/27/212135 DD/ 34 TD/TT: - Medical Decision Making Chest x-ray normal no infiltrates no opacities, this is likely URI, patient will be treated for same. Will DC to home with prescriptions. Patient will follow- up primary care doctor in 2 to 3 days. Patient will return to emergency department should symptoms worsen. Patient verbalized agreement and understanding of discharge plan. Patient DC'd home in stable condition at this time. Critical care attestation.: If time is entered above; I have spent that time in minutes in the direct care of this critically ill patient, excluding procedure time. ED Disposition Clinical Impression: Viral illness URI (upper respiratory infection) Qualifiers: URI type: unspecified URI Qualified Code(s): J06.9 - Acute upper respiratory infection, unspecified Disposition: 01 HOME / SELF CARE / HOMELESS Is pt being admited?: No Does the pt Need Aspirin: No Condition: Stable Instructions: Viral Illness, Adult, Upper Respiratory Infection, Adult Additional Instructions: Take medications as prescribed, follow-up with your doctor in 2 to 3 days. Hydrate as directed. Return to emergency department should symptoms worsen. Prescriptions: Docusate Sodium [Colace CAP] 100 mg PO BID PRN #20 capsule PRN Reason: Constipation Dexamethasone [Decadron] 6 mg PO DAILY #5 tablet Albuterol Mdi (or & Nicu Only) [ProAir HFA Inhaler] 2 puff IH QID PRN #1 inhalation PRN Reason: Shortness Of Breath Referrals: KENIA LEON MD [Staff Physician] - 3-5 Days Forms: Work/School Release Form(ED) Time of Disposition: 03:01
[2021-11-28 03:15] VITALS: BP 136/67
== END 2021-11-28 05:08 | disposition home or self-care (01) ==
LOC: ED 19:10
DX: B34.9 Viral infection, unspecified (principal); J06.9 Acute upper respiratory infection, unspecified; J45.909 Unspecified asthma, uncomplicated; F17.200 Nicotine dependence, unspecified, uncomplicated; Z88.2 Allergy status to sulfonamides; Z88.5 Allergy status to narcotic agent; Z79.899 Other long term (current) drug therapy
CPT/HCPCS: 71046; 99283

== ENCOUNTER 2022-02-04 22:50 | Emergency (ER) | payer OTHER ==
[2022-02-04 22:57] VITALS: BP 120/69
== END 2022-02-05 09:20 | disposition left against medical advice (07) ==
LOC: ED 22:50
DX: R21 Rash and other nonspecific skin eruption (principal); Z53.21 Procedure and treatment not carried out due to patient leaving prior to being seen by health care provider